=== PATIENT | female | born 1985 | race Caucasian/White ===

== ENCOUNTER 2018-02-07 18:32 | Emergency (ER) | payer SELFPAY ==
[~2018-02-07] VITALS: Ht 165.1 cm; Wt 58.1 kg
--- NOTE | 2018-02-07 19:11 | NUR ---
Dr. Juwan ANGELO MD at bedside for MSE.
[2018-02-07] MEDS ORDERED: IV NORMAL SALINE 1000 ML BAG IV ONE (19:30)
[2018-02-07 19:34] LABS: BASOPHILS # (AUTO) 0.1 K/uL (0.0-8.0); BASOPHILS % (AUTO) 0.8 % (0.0-2.0); EOSINOPHILS # (AUTO) 0.2 K/uL (0.0-0.7); EOSINOPHILS % (AUTO) 2.7 % (0.0-7.0); HEMATOCRIT 38.5 % (31.2-41.9); LYMPHOCYTES # (AUTO) 2.1 K/uL (20.0-40.0); LYMPHOCYTES % (AUTO) 28.3 % (20.5-51.5); MEAN CORPUSCULAR HEMOGLOBIN 30.3 uug (24.7-32.8); MEAN CORPUSCULAR HGB CONC 34 g/dL (32.3-35.6); MONOCYTES # (AUTO) 0.6 K/uL (2.0-10.0); MONOCYTES % (AUTO) 7.8 % (0.0-11.0); NEUTROPHILS # (AUTO) 4.4 K/uL (1.8-8.9); NEUTROPHILS % (AUTO) 60.4 % (38.5-71.5); PLATELET COUNT (AUTO) 204 K/uL (179-408); RED BLOOD CELL COUNT(AUTO) 4.28 MIL/uL (3.63-4.92); WHITE BLOOD COUNT (AUTO) 7.3 K/uL (3.8-11.8)
[2018-02-07 19:42] LABS: CREATININE 0.7 mg/dL (0.6-1.3); POTASSIUM 3.5 mmol/L (3.5-5.1)
[2018-02-07 19:48] LABS: BILIRUBIN,DIRECT 0.1 mg/dL (0.0-0.2); BILIRUBIN,TOTAL 0.2 mg/dL (0.2-1.0); TOTAL PROTEIN, SERUM 7.1 g/dL (6.4-8.2)
[2018-02-07 19:56] LABS: THYROID STIMULATING HORMONE 0.94 mIU/mL (0.358-3.740)
--- NOTE | 2018-02-07 20:21 | NUR ---
IV removed. Catheter intact and site benign. Pressure and 4x4 gauze applied to site. No bleeding noted.
--- NOTE | 2018-02-07 20:25 | NUR ---
Patient discharged to home in stable conditon. Written and verbal after care instructions given. Patient verbalizes understanding of instructions. Pt ambulated out of ER in steady gait. All belongings with pt. VSS. NAD noted.
[2018-02-07 20:28] VITALS: BP 116/61
== END 2018-02-07 20:30 | disposition home or self-care (01) ==
LOC: ER 18:33
DX: R00.2 Palpitations (principal); J20.8 Acute bronchitis due to other specified organisms; B97.89 Other viral agents as the cause of diseases classified elsewhere; Z88.0 Allergy status to penicillin
CPT/HCPCS: 36415; 71045; 84443; 85025; 93005; A4663; J7030